=== PATIENT | female | born 1980 | race Caucasian/White ===

== ENCOUNTER → 2017-09-05 | Outpatient (CLI) | payer OTHER | LOC: M LRY 12:56 | DX: M25.571 Pain in right ankle and joints of right foot (principal) | CPT/HCPCS: 73610 ==

== ENCOUNTER → 2017-11-13 | Outpatient (REF) | payer OTHER ==
[2017-11-17 14:14] LABS: HPV HYBRID CAPTURE II Negative (Negative)
== END ==
LOC: M LAB REF 17:19
DX: Z01.419 Encounter for gynecological examination (general) (routine) without abnormal findings (principal); Z11.51 Encounter for screening for human papillomavirus (HPV)

== ENCOUNTER → 2018-01-25 | Outpatient (CLI) | payer OTHER ==
[2018-01-25 13:25] LABS: BASO % 0.5 % (0.0-1.0); EOS # 0.3 10^3/uL (0.0-0.50); EOS % 4.3 % (0.0-3.0); HEMATOCRIT 35.6 % (36.0-47.0); HEMOGLOBIN 12.2 g/dl (12.0-15.5); IMMATURE GRANULOCYTE % 0.3 % (0-3.0); LYMPH # 1.5 10^3/uL (1.5-4.5); LYMPH % 24.5 % (24.0-44.0); MEAN CORPUSCULAR HEMOGLOBIN 30.9 pg (27.0-33.0); MEAN CORPUSCULAR HGB CONC 34.3 g/dl (32.0-36.5); MEAN CORPUSCULAR VOLUME 90.1 fl (80.0-96.0); MONO # 0.5 10^3/uL (0.0-0.8); MONO % 7.8 % (0.0-5.0); NEUTROPHILS # 3.9 10^3/uL (1.8-7.7); NEUTROPHILS % 62.6 % (36.0-66.0); PLATELET COUNT, AUTOMATED 298 10^3/uL (150-450); RED BLOOD COUNT 3.95 10^6/uL (4.00-5.40); RED CELL DISTRIBUTION WIDTH 13.6 % (11.5-14.5); WHITE BLOOD COUNT 6.3 10^3/uL (4.0-10.0)
[2018-01-25 14:21] LABS: HBsAg Prenatal NEGATIVE (NEGATIVE); HIV 1&2 SCREEN CENTAUR NEGATIVE (NEGATIVE); RUBELLA IgG QUALITATIVE IMMUNE (IMMUNE)
[2018-01-25 15:07] LABS: CHLAMYDIA DNA AMPLIFICATION NEGATIVE (NEGATIVE); GC DNA AMPLIFICATION NEGATIVE (NEGATIVE)
== END ==
LOC: M SMT 08:45
DX: Z34.81 Encounter for supervision of other normal pregnancy, first trimester (principal); Z3A.09 9 weeks gestation of pregnancy

== ENCOUNTER → 2018-02-01 | Outpatient (CLI) | payer OTHER | LOC: M LAB 15:39 | DX: O09.521 Supervision of elderly multigravida, first trimester (principal); Z3A.00 Weeks of gestation of pregnancy not specified | CPT/HCPCS: 36415 ==

== ENCOUNTER → 2018-03-03 | Outpatient (CLI) | payer OTHER | LOC: M RAD 13:11 | DX: Z34.82 Encounter for supervision of other normal pregnancy, second trimester (principal); Z36.89 Encounter for other specified antenatal screening; Z3A.18 18 weeks gestation of pregnancy | CPT/HCPCS: 76811 ==

== ENCOUNTER → 2018-05-18 | Outpatient (CLI) | payer OTHER ==
[~2018-05-18] MED LIST: IBUP60TA PO; MAPA500T2 PO; VITAPRTA PO
[2018-05-18 21:08] LABS: HEMATOCRIT 35.8 % (36.0-47.0); HEMOGLOBIN 11.8 g/dl (12.0-15.5); MEAN CORPUSCULAR HEMOGLOBIN 31.6 pg (27.0-33.0); PLATELET COUNT, AUTOMATED 263 10^3/uL (150-450); RED BLOOD COUNT 3.73 10^6/uL (4.00-5.40); WHITE BLOOD COUNT 10.5 10^3/uL (4.0-10.0)
== END ==
LOC: M SMT 13:06
PROVIDERS: ATTEND Advanced Practice Midwife
DX: O09.522 Supervision of elderly multigravida, second trimester (principal); Z3A.00 Weeks of gestation of pregnancy not specified

== ENCOUNTER → 2018-06-23 | Outpatient (CLI) | payer OTHER | LOC: M LAB 08:03 | PROVIDERS: ATTEND Advanced Practice Midwife | DX: R73.02 Impaired glucose tolerance (oral) (principal) ==

== ENCOUNTER → 2018-07-06 | Outpatient (REF) | payer OTHER | LOC: M LAB REF 17:38 | PROVIDERS: ATTEND Advanced Practice Midwife | DX: Z34.83 Encounter for supervision of other normal pregnancy, third trimester (principal); Z3A.00 Weeks of gestation of pregnancy not specified ==

== ENCOUNTER → 2018-07-14 | Outpatient (CLI) | payer OTHER ==
[~2018-07-14] MED LIST changes: +IBUP-1114 PO; +IBUP600T42 PO; -IBUP60TA PO
[2018-07-14 18:06] LABS: HEMATOCRIT 35.9 % (36.0-47.0); HEMOGLOBIN 11.9 g/dl (12.0-15.5); MEAN CORPUSCULAR HEMOGLOBIN 31.5 pg (27.0-33.0); MEAN CORPUSCULAR HGB CONC 33.1 g/dl (32.0-36.5); PLATELET COUNT, AUTOMATED 260 10^3/uL (150-450); RED BLOOD COUNT 3.78 10^6/uL (4.00-5.40); WHITE BLOOD COUNT 9.5 10^3/uL (4.0-10.0)
[2018-07-14 18:17] LABS: ALT/SGPT 19 U/L (12-78); BILIRUBIN,TOTAL 0.3 MG/DL (0.2-1.0); CREATININE FOR GFR 0.63 MG/DL (0.55-1.30); GLOMERULAR FILTRATION RATE > 60.0 (>60); LDH LACTATE DEHYDROGENASE 197 U/L (84-246); URIC ACID 5.5 MG/DL (2.6-6.0)
[2018-07-14 18:33] LABS: TOTAL PROTEIN,RANDOM URINE 90.2 MG/DL (0.0-12.0)
== END ==
LOC: M SMT 15:12
PROVIDERS: ATTEND Obstetrics & Gynecology
DX: O16.3 Unspecified maternal hypertension, third trimester (principal); Z3A.00 Weeks of gestation of pregnancy not specified

== ENCOUNTER 2018-07-15 10:35 | Inpatient (IN) | payer OTHER ==
[~2018-07-15] VITALS: Ht 167.6 cm; Wt 81.5 kg
[2018-07-15] VITALS (7 sets, daily range): BP systolic 115–128; BP diastolic 56–79
[~2018-07-15 10:35] MED LIST changes: -IBUP-1114 PO
[2018-07-15 11:32] LABS: HEMATOCRIT 36.3 % (36.0-47.0); HEMOGLOBIN 12.1 g/dl (12.0-15.5); MEAN CORPUSCULAR HEMOGLOBIN 31.3 pg (27.0-33.0); MEAN CORPUSCULAR HGB CONC 33.3 g/dl (32.0-36.5); MEAN CORPUSCULAR VOLUME 93.8 fl (80.0-96.0); PLATELET COUNT, AUTOMATED 262 10^3/uL (150-450); RED BLOOD COUNT 3.87 10^6/uL (4.00-5.40); WHITE BLOOD COUNT 9.3 10^3/uL (4.0-10.0)
[2018-07-15] MEDS: miSOPROStol 50 MCG 1/2 TAB (S0191) SL SCH ×2 (12:09→15:00)
--- NOTE | 2018-07-15 12:55 | HPE ---
DATE OF ADMISSION: 07/15/2018 37-year-old, 6, para 4-0-1-4 female at 37 and 2/7 weeks gestation by last menstrual period, consistent with a 9 week ultrasound, estimated date of confinement (EDC) of 08/03/2018. She presents for induction of labor due to preeclampsia. She has markedly increased swelling in her lower extremities. She denies headaches or blurred vision. Most recent blood pressure in the office is 130/92. COURSE: The patient initiated care at 8 weeks gestation on 12/28/2018. Her first trimester blood pressure was 102/60, weight 130 pounds. On 07/14/2018 her blood pressure was 140/88 and 1+ proteinuria. Laboratories for preeclampsia were equivocal. She subsequently came in the next day and still had elevated blood pressures. OBSTETRICAL HISTORY: 1. June 2007, 40 week vaginal delivery, 8 pounds 8 ounce male infant. 2. March 2009, 40 week vaginal delivery, 8 pounds 13 ounce male infant. 3. 2009 miscarriage. 4. April 2011, 10 pound vaginal delivery, female infant. 5. August 2015, vaginal delivery, 9 pounds 8 ounce male infant. complicated by gestational diabetes. MEDICAL HISTORY: Noncontributory. SURGERIES: None. ALLERGIES: None. SOCIAL HISTORY: The patient lives in [place]. She is . She denies cigarettes, alcohol or drug use. FAMILY HISTORY: Noncontributory. PHYSICAL EXAMINATION: Blood pressure 130/92, weight 183, pulse 84. She is in no apparent distress. HEAD/NECK: Normal. LUNGS: Clear. HEART: Regular rate and rhythm. ABDOMEN: Nontender. Gravid. heart tones category 1. Contractions irregular. Sterile vaginal examination: 1 cm, 50%, -2, posterior, soft, vertex. EXTREMITIES: 2+ edema in the lower extremities. LABORATORIES: Blood type B positive. Rubella immune. RPR nonreactive. Diabetes screen was 130 with normal 3 hour GTT. Group B streptococcus (GBS) negative on 07/06/2018. ASSESSMENT: 37-year-old 6, para 4-0-1-4 female at 37 and 2/7 weeks gestation with diagnosed preeclampsia. The patient was admitted on 07/15/2018. PLAN: Labor induction. Risks of induction were discussed.
[2018-07-15] MEDS ORDERED: LR 1,000 ML IV ONE (14:00)
[2018-07-15] MEDS: LR 1,000 ML IV SCH ×3 (14:16→23:52)
[2018-07-15] MEDS ORDERED: OXYTOCIN DRIP 30 UNITS in APPROPRIATE DILUENT 1 EA IV SCH (19:45)
[2018-07-15] MEDS ORDERED: FENTANYL 2MCG/ML ROPIVACAINE 0.2% IN 0.9% NACL 100ML IVBAG As Ordered ONE (19:47)
[2018-07-15] MEDS ORDERED: REFRIGERATOR IV KEYS XX PRN (20:34)
[2018-07-15] MEDS ORDERED: ePHEDrine SULFATE 25 MG/5 ML(5MG/ML) SYRINGE IV PRN (20:34)
[2018-07-15] MEDS ORDERED: diphenhydrAMINE INJ 50MG/ML VIAL (J1200) IV PRN (20:34)
[2018-07-15] MEDS ORDERED: ONDANSETRON 4MG/2ML VIAL (J2405) IV PRN (20:34)
[2018-07-15] MEDS ORDERED: NALOXONE INJ 0.4 MG/1 ML VIAL (J2310) IV PRN (20:34)
[2018-07-15] MEDS ORDERED: EPIDURAL COMMENT XX SCH (20:34)
[2018-07-15] MEDS ORDERED: FENTANYL/ROPIVACAINE/NACL BAG 100 ML EPIDURAL SCH (20:34)
[2018-07-15] MEDS ORDERED: EPIDURAL/PCA KEYS XX PRN (20:34)
[2018-07-16] MEDS ORDERED: FAMOTIDINE 20 MG TAB PO ONE
[2018-07-16] MEDS ORDERED: RHOGAM 300 MCG (1500 IU) INJ (J2790) IM SCH (01:45)
[2018-07-16] MEDS ORDERED: OXYTOCIN DRIP 30 UNITS in APPROPRIATE DILUENT 1 EA IV ONE (01:45)
[2018-07-16] MEDS ORDERED: ACETAMINOPHEN 500 MG TAB PO PRN (01:45)
[2018-07-16] MEDS ORDERED: ONDANSETRON 4MG/2ML VIAL (J2405) IV PRN (01:45)
[2018-07-16] MEDS ORDERED: DOCUSATE SODIUM 100 MG CAP PO PRN (01:45)
[2018-07-16] MEDS ORDERED: DIBUCAINE 1% OINTMENT 30GM TOP PRN (01:45)
[2018-07-16] MEDS ORDERED: IBUPROFEN 800 MG TAB PO PRN (01:45)
[2018-07-16] MEDS ORDERED: METHYLERGONOVINE MALEATE 0.2 MG TAB PO PRN (01:45)
[2018-07-16] MEDS ORDERED: MEASLES,MUMPS,RUBELLA VACCINE INJ (MMR-II) (90707) SC SCH (01:45)
[2018-07-16 04:34] VITALS: BP 133/87
--- NOTE | 2018-07-16 07:30 | DN ---
DATE OF DELIVERY: 07/16/2018 PREDELIVERY DIAGNOSIS: 37-3/7 weeks gestation, pre-eclampsia, induction. POSTDELIVERY DIAGNOSIS: Delivered. PROCEDURE: Spontaneous vaginal delivery. COMPUTER SYSTEMS HARDWARE ANALYST: Benji Ennis MD. ANESTHESIA: Epidural. ESTIMATED BLOOD LOSS: 200 mL. FINDINGS: 7 pounds 3 ounces infant with 9 and 9. DELIVERY SUMMARY: After a sjhort second stage second stage consisting of one contraction. Patient has spontaneous delivery of a 7 pound 3 ounce male with 9 and 9 under epidural anesthesia. There is no nuchal cord. The shoulders delivered with ease. The infant cried immediately and was handed to the mother. The cord was doubly clamped and cut. Placenta delivered spontaneously and appeared to be intact. Patient received IV Pitocin immediately after delivery of the placenta. There were no vaginal lacerations present. Sponge counts correct. MTDD
[2018-07-16] MEDS: PRENATAL VITAMINS CHEWABLE TABLET PO SCH (12:43)
[2018-07-16 17:50] VITALS: BP 130/83
[2018-07-17 06:00] VITALS: BP 134/84
[2018-07-17] MEDS: PRENATAL VITAMINS CHEWABLE TABLET PO SCH (07:36)
[2018-07-17] MEDS ORDERED: IBUP-1114 PO (09:09)
[2018-07-17] MEDS ORDERED: MAPA500T2 PO (09:09)
== END 2018-07-17 12:20 | disposition home or self-care (01) | DRG 807 ==
LOC: M LDI 10:35 → M OBS 07-16 03:53
PROVIDERS: ADMIT Specialist; ATTEND Specialist
PROC: 3E0P7GC Introduction of Other Therapeutic Substance into Female Reproductive, Via Natural or Artificial Opening (ICD-10-PCS; 2018-07-15)
PROC: 10E0XZZ Delivery of Products of Conception, External Approach (ICD-10-PCS; principal; 2018-07-16)
DX: O14.94 Unspecified pre-eclampsia, complicating childbirth (principal); Z37.0 Single live birth; Z3A.37 37 weeks gestation of pregnancy; O13.4 Gestational [pregnancy-induced] hypertension without significant proteinuria, complicating childbirth

== ENCOUNTER → 2018-11-19 | Outpatient (CLI) | payer OTHER ==
[~2018-11-19] MED LIST changes: +IBUP-1114 PO
[2018-11-25 15:06] LABS: HPV LOW VOL RFLX Negative (Negative)
== END ==
LOC: M SMT 11:02
PROVIDERS: ATTEND Advanced Practice Midwife
DX: Z13.79 Encounter for other screening for genetic and chromosomal anomalies (principal)

== ENCOUNTER → 2020-09-28 | Outpatient (REF) | payer BC, OTHER | LOC: M SFHCWAGY 11:16 | PROVIDERS: ATTEND Advanced Practice Midwife | DX: Z12.4 Encounter for screening for malignant neoplasm of cervix (principal); Z77.9 Other contact with and (suspected) exposures hazardous to health | CPT/HCPCS: 87624; G0123 ==

== ENCOUNTER → 2020-12-10 | Outpatient (CLI) | payer BC ==
--- NOTE | 2020-12-11 10:06 | REP ---
INDICATION: IRREGULAR BLEEDING COMPARISON: None. TECHNIQUE: Transabdominal pelvic ultrasound followed by transvaginal examination for better evaluation of the endometrium and adnexa with color Doppler evaluation of the ovaries. FINDINGS: Bladder is unremarkable and measures 9.0 x 6.0 x 8.0 cm. Normal anteverted uterus measures 9.1 x 6.6 x 7.0 cm. The endometrial complex measures 12.6 mm thickness. No discrete uterine or endometrial abnormalities are appreciated. Bilateral ovaries are normal in appearance and vascularity without evidence for torsion. Right ovary measures 4.0 x 1.6 x 3.1 cm; R I = 0.60. Left ovary measures 2.9 x 2.2 x 2.8 cm; R I = 0.59. No pelvic fluid or adnexal mass lesion. IMPRESSION: Normal pelvic ultrasound. <Electronically signed by Pepito Noguera > 12/11/20 1002
== END ==
LOC: M WHC 08:10
PROVIDERS: ATTEND Specialist
DX: N92.6 Irregular menstruation, unspecified (principal)

== ENCOUNTER → 2021-03-22 | Outpatient (CLI) | payer BC | LOC: M LABSMTC 09:45 | PROVIDERS: ATTEND Anesthesiology | DX: Z01.812 Encounter for preprocedural laboratory examination (principal); Z20.822 Contact with and (suspected) exposure to COVID-19 ==

== ENCOUNTER → 2021-03-26 | Outpatient (CLI) | payer BC ==
[~2021-03-26] MED LIST changes: +IBUP-1022 PO; +OXYC1TAB23 PO
== END ==
LOC: M LABSMTC 12:45
PROVIDERS: ATTEND Anesthesiology
DX: Z01.812 Encounter for preprocedural laboratory examination (principal); Z11.52 Encounter for screening for COVID-19

== ENCOUNTER 2021-03-27 06:18 | Day surgery (SDC) | payer BC ==
[~2021-03-27] VITALS: Ht 162.6 cm; Wt 63.5 kg
[~2021-03-27 06:18] MED LIST changes: -IBUP-1022 PO; +LR 1,000 ML IV SCH; -OXYC1TAB23 PO; +ceFAZolin SOD 2 GM in IV 1 EA IV ONE
[2021-03-27] MEDS ORDERED: BUPIVACAINE HCL 0.25% 10ML VIAL As Ordered ONE (07:11)
[2021-03-27] MEDS ORDERED: ROCURONIUM BROMIDE 50 MG/5 ML VIAL As Ordered ONE (07:17)
[2021-03-27] MEDS ORDERED: LIDOCAINE 2% 100MG/5ML SDV (FOR ANES.) As Ordered ONE (07:17)
[2021-03-27] MEDS ORDERED: propofoL 200 MG/20 ML VIAL As Ordered ONE (07:17)
[2021-03-27] MEDS ORDERED: fentaNYL 250 MCG/5 ML INJECTION As Ordered ONE (07:18)
[2021-03-27] MEDS ORDERED: MIDAZOLAM INJ 2MG/2ML VIAL (J2250 PER 1MG) As Ordered ONE (07:18)
[2021-03-27 07:42] LABS: HEMATOCRIT 38.6 % (36.0-47.0); HEMOGLOBIN 12.9 g/dl (12.0-15.5); MEAN CORPUSCULAR HEMOGLOBIN 30.1 pg (27.0-33.0); MEAN CORPUSCULAR HGB CONC 33.4 g/dl (32.0-36.5); PLATELET COUNT, AUTOMATED 317 10^3/uL (150-450); RED BLOOD COUNT 4.29 10^6/uL (4.00-5.40); WHITE BLOOD COUNT 5.4 10^3/uL (4.0-10.0)
[2021-03-27] MEDS ORDERED: LACRILUBE (AKWA TEARS) OPHTH OINT 3.5 GM As Ordered ONE (07:56)
[2021-03-27] MEDS ORDERED: KETOROLAC 60MG 2ML VIAL As Ordered ONE (08:10)
[2021-03-27] MEDS ORDERED: METOCLOPRAMIDE INJ 10MG/2ML VIAL (J2765 PER 1) As Ordered ONE (08:10)
[2021-03-27] MEDS ORDERED: ONDANSETRON 4MG/2ML VIAL As Ordered ONE (08:10)
[2021-03-27] MEDS ORDERED: ACETAMINOPHEN 1000MG 100ML IV BTL (OFIRMEV) (J0131 PER 10MG) As Ordered ONE (08:10)
[2021-03-27] MEDS ORDERED: SUGAMMADEX SODIUM 500 MG/5 ML VIAL (BRIDION) As Ordered ONE (08:10)
[2021-03-27] MEDS ORDERED: dexameTHASONE 4 MG/ML 1ML VIAL (J1100 PER 1MG) As Ordered ONE (08:10)
[2021-03-27] MEDS ORDERED: HYDROmorphone HCL 2MG/ML 1ML VIAL As Ordered ONE (08:21)
[2021-03-27] MEDS ORDERED: OXYC1TAB23 PO (08:59)
[2021-03-27] MEDS ORDERED: IBUP-1022 PO (09:00)
[2021-03-27] MEDS ORDERED: DOCUSATE SODIUM 100MG CAPSULE PO SCH (09:00)
[2021-03-27] MEDS ORDERED: fentaNYL 100 MCG/2 ML INJECTION IV PRN (09:10)
[2021-03-27] MEDS ORDERED: oxyCODONE 5MG TAB PO PRN (09:10)
[2021-03-27] MEDS ORDERED: LR 1,000 ML IV SCH (09:10)
[2021-03-27] MEDS ORDERED: ONDANSETRON 4MG/2ML VIAL IV PRN ×2 (09:10→09:40)
[2021-03-27] MEDS ORDERED: PERCOCET 5MG/325MG TAB PO PRN (09:35)
[2021-03-27] MEDS ORDERED: PROMETHAZINE INJ 25 MG/ML VIAL (J2550) IV PRN (10:10)
[2021-03-27 14:10] VITALS: BP 121/72
[2021-03-27] MEDS ORDERED: KETOROLAC 30 MG/ML 1ML VIAL IV PRN (15:00)
== END 2021-03-27 16:04 | disposition home or self-care (01) ==
LOC: M SDC 06:18
PROVIDERS: ATTEND Specialist
DX: N92.1 Excessive and frequent menstruation with irregular cycle (principal)
CPT/HCPCS: 36415; 58552; 81025; 85027; 86850; 86900; 86901; 88307; J0131; J0690; J1100; J1170; J1885; J2250; J2405; J2765; J3010; S2900

== ENCOUNTER → 2022-10-09 | Outpatient (CLI) | payer BC ==
[~2022-10-09] MED LIST changes: +IBUP-1022 PO; -LR 1,000 ML IV SCH; +OXYC1TAB23 PO; -ceFAZolin SOD 2 GM in IV 1 EA IV ONE
== END ==
LOC: M WHC 10:00
PROVIDERS: ATTEND Physician Assistant
DX: Z12.31 Encounter for screening mammogram for malignant neoplasm of breast (principal)

== ENCOUNTER 2023-05-30 14:23 | Emergency (ER) | payer BC ==
[~2023-05-30] VITALS: Ht 167.6 cm; Wt 59.1 kg
[2023-05-30] MEDS ORDERED: SUMA25TA3 (16:04)
[2023-05-30] MEDS ORDERED: AMIT25TA19 (16:05)
[2023-05-30 16:24] LABS: BASO % 0.5 % (0.0-1.0); EOS # 0.1 10^3/uL (0.0-0.5); EOS % 1.3 % (0.0-3.0); HEMATOCRIT 42.3 % (36.0-47.0); HEMOGLOBIN 13.9 g/dl (12.0-15.5); LYMPH # 1.6 10^3/uL (1.5-5.0); LYMPH % 24.3 % (24.0-44.0); MEAN CORPUSCULAR HEMOGLOBIN 30.2 pg (27.0-33.0); MEAN CORPUSCULAR HGB CONC 32.9 g/dl (32.0-36.5); MONO # 0.6 10^3/uL (0.0-0.8); MONO % 8.9 % (2.0-8.0); NEUTROPHILS # 4.1 10^3/uL (1.5-8.5); NEUTROPHILS % 64.7 % (36.0-66.0); PLATELET COUNT, AUTOMATED 373 10^3/uL (150-450); WHITE BLOOD COUNT 6.4 10^3/uL (4.0-10.0)
[2023-05-30 16:43] LABS: LIPASE 37 U/L (12-53)
[2023-05-30 16:44] LABS: HCG, SERUM QUALITATIVE NEGATIVE (NEGATIVE)
[2023-05-30 16:46] LABS: ALBUMIN 4.2 G/DL (3.2-5.2); ALKALINE PHOSPHATASE 59 U/L (46-116); ALT/SGPT 14 U/L (7.0-40); AST/SGOT 12 U/L (<34); BILIRUBIN,DIRECT 0.3 MG/DL (<0.4); BILIRUBIN,TOTAL 0.7 MG/DL (0.3-1.2); BLOOD UREA NITROGEN 13 MG/DL (9-23); CALCIUM LEVEL 9.2 MG/DL (8.5-10.1); CARBON DIOXIDE LEVEL 29 MMOL/L (20-31); CHLORIDE LEVEL 106 MMOL/L (98-107); CREATININE FOR GFR 0.67 MG/DL (0.55-1.30); GLOMERULAR FILTRATION RATE > 60.0 (>58); GLUCOSE, FASTING 95 MG/DL (60-100); POTASSIUM SERUM 3.8 MMOL/L (3.5-5.1); SODIUM LEVEL 140 MMOL/L (136-145); TOTAL PROTEIN 7.2 G/DL (5.7-8.2)
[2023-05-30] MEDS ORDERED: ISOVUE-370 76% 100ML VIAL As Ordered ONE (17:47)
[2023-05-30] MEDS ORDERED: MIRA3350 PO (19:48)
[2023-05-30 20:00] VITALS: BP 128/74; TEMP 97.2; O2SAT 99
== END 2023-05-30 20:00 | disposition home or self-care (01) ==
LOC: M ED 14:23
DX: N83.201 Unspecified ovarian cyst, right side (principal); N73.9 Female pelvic inflammatory disease, unspecified; K59.00 Constipation, unspecified; G43.909 Migraine, unspecified, not intractable, without status migrainosus; Z79.82 Long term (current) use of aspirin; Z79.899 Other long term (current) drug therapy
CPT/HCPCS: 36415; 74177; 80048; 80076; 81001; 83690; 84703; 85025; 99283; Q9967

== ENCOUNTER → 2023-07-13 | Outpatient (CLI) | payer BC ==
[~2023-07-13] MED LIST changes: +AMIT25TA19; +MIRA3350 PO; +SUMA25TA3
== END ==
LOC: M RAD 07:08
PROVIDERS: ATTEND Registered Nurse
DX: R10.11 Right upper quadrant pain (principal)
CPT/HCPCS: 78227; A9537

== ENCOUNTER → 2024-08-03 | Outpatient (REF) ==
[2024-08-03 15:17] LABS: ALBUMIN 3.6 G/DL (3.2-5.2); ALKALINE PHOSPHATASE 54 U/L (35-104); ALT/SGPT 17 U/L (7.0-40); AST/SGOT 13 U/L (<34); BILIRUBIN,TOTAL 0.5 MG/DL (0.3-1.2); BLOOD UREA NITROGEN 9 MG/DL (9-23); CALCIUM LEVEL 8.7 MG/DL (8.5-10.1); CARBON DIOXIDE LEVEL 28 MMOL/L (20-31); CHLORIDE LEVEL 105 MMOL/L (98-107); CHOLESTEROL LEVEL 141 MG/DL (<200); CHOLESTEROL RISK RATIO 2.21 (<5); CREATININE FOR GFR 0.64 MG/DL (0.55-1.30); GLOMERULAR FILTRATION RATE > 90.0 (>58); GLUCOSE, FASTING 93 MG/DL (60-100); HDL CHOLESTEROL 63.7 MG/DL (>40); LDL CHOLESTEROL 64.7 MG/DL (<100); NON-HDL-C 77.3 MG/DL; POTASSIUM SERUM 4.3 MMOL/L (3.5-5.1); SODIUM LEVEL 139 MMOL/L (136-145); TOTAL PROTEIN 6.4 G/DL (5.7-8.2); TRIGLYCERIDES LEVEL 63 MG/DL (<150)
[2024-08-03 15:18] LABS: BASO % 0.6 % (0.0-1.0); EOS # 0.2 10^3/uL (0.0-0.5); EOS % 2.7 % (0.0-3.0); HEMATOCRIT 39.8 % (36.0-47.0); LYMPH # 1.9 10^3/uL (1.5-5.0); MEAN CORPUSCULAR HEMOGLOBIN 30.1 pg (27.0-33.0); MEAN CORPUSCULAR HGB CONC 32.7 g/dl (32.0-36.5); MEAN CORPUSCULAR VOLUME 92.1 fl (80.0-96.0); MONO # 0.6 10^3/uL (0.0-0.8); MONO % 9.3 % (2.0-8.0); NEUTROPHILS # 3.5 10^3/uL (1.5-8.5); NEUTROPHILS % 57.1 % (36.0-66.0); PLATELET COUNT, AUTOMATED 327 10^3/uL (150-450); RED BLOOD COUNT 4.32 10^6/uL (4.00-5.40); WHITE BLOOD COUNT 6.2 10^3/uL (4.0-10.0)
[2024-08-03 15:27] LABS: HEMOGLOBIN A1c 5.1 % (4.0-6.0)
[2024-08-03 15:30] LABS: INR 1.01; PROTHROMBIN TIME 13.6 SECONDS (12.5-14.5)
[2024-08-03 16:22] LABS: CREATININE,RANDOM URINE 95.5 MG/DL; TOTAL PROTEIN,RANDOM URINE 11.2 MG/DL (0.0-14.0)
== END ==
LOC: M PLALAB 13:38
PROVIDERS: ATTEND Nurse Practitioner Family
DX: Z52.4 Kidney donor (principal)

== ENCOUNTER → 2024-08-03 | Outpatient (CLI) | payer BC | LOC: M WHC 12:38 | PROVIDERS: ATTEND Physician Assistant | DX: Z12.31 Encounter for screening mammogram for malignant neoplasm of breast (principal); R92.313 Mammographic fatty tissue density, bilateral breasts ==

== ENCOUNTER → 2024-08-05 | Outpatient (REF) | payer BC ==
[2024-08-05 14:00] LABS: CREATININE, SERUM 0.6 MG/DL (0.55-1.02); TOTAL VOLUME, URINE 1225 ML
[2024-08-05 14:18] LABS: CREATININE CLEARANCE, URINE 102.7 ML/MIN (75-115); CREATININE, URINE 72.42 MG/DL; MALB URINE SIEMENS < 3.0 MG/L
== END ==
LOC: M LAB REF 13:07
PROVIDERS: ATTEND Nurse Practitioner Family
DX: Z52.4 Kidney donor (principal)